=== PATIENT | female | born 1960 | race Hispanic/Latino ===

== ENCOUNTER 2023-05-02 12:24 | Emergency (ER) | payer OTHER, SELFPAY | END 2023-05-02 13:03 | disposition home or self-care (01) | LOC: NAV ERS 12:24 | DX: S71.151A Open bite, right thigh, initial encounter (principal); L08.9 Local infection of the skin and subcutaneous tissue, unspecified; W54.0XXA Bitten by dog, initial encounter | CPT/HCPCS: 99283 ==